=== PATIENT | male | born 1970 | race Native Hawaiian/Other Pacific Islander ===

== ENCOUNTER 2021-05-19 15:49 | Emergency (ER) | payer OTHER ==
[~2021-05-19] VITALS: Ht 188 cm; Wt 113.4 kg
[2021-05-19 16:04] VITALS: TEMP 98.7
[2021-05-19 16:59] LABS: PLATELET COUNT 218 K/uL (142-355)
[2021-05-19 17:07] LABS: POTASSIUM 4.8 mmol/L (3.6-5.2)
[2021-05-19 18:57] VITALS: BP 132/77
== END 2021-05-19 18:57 | disposition home or self-care (01) ==
LOC: ED 15:49
PROVIDERS: Emergency Medicine
DX: U07.1 COVID-19 (principal); R93.89 Abnormal findings on diagnostic imaging of other specified body structures
CPT/HCPCS: 80053; 83880; 84484; 85027; 87635; 93005; 99283; U0003